=== PATIENT | female | born 1950 ===

== ENCOUNTER 2017-08-15 18:30 | Inpatient (IN) | payer MEDICAID ==
[~2017-08-15] VITALS: Ht 165.1 cm; Wt 69.4 kg
[2017-08-15] MEDS ORDERED: ACETAMINOPHEN 325 MG TAB PO STA (22:41)
[2017-08-15 23:17] VITALS: TEMP 98.6
--- NOTE | 2017-08-15 23:18 | RADRPT ---
PROCEDURE: CHEST - 1 VIEW CLINICAL INDICATION: 67-year-old female with shortness of breath and sepsis. TECHNIQUE: A single frontal AP semi-erect portable view of the chest was performed. The images we re reviewed on a PACS workstation. COMPARISON: None. FINDINGS: The cardiomediastinal silhouette is within normal limits. There is a shallow inspiration. There is m ild bibasilar subsegmental atelectasis. There is no evidence for focal consolidation. There is no e vidence for congestive heart failure. There is no evidence for pneumothorax. The osseous structures are intact. IMPRESSION: Shallow inspiration with mild bibasilar subsegmental atelectasis. .Kenroy Galvan MD, MD Date Time Electronically viewed and signed by .Kenroy Galvan MD, on 08/15/2017 23:18 .M/
[2017-08-15] MEDS ORDERED: CARB15DR50 BOTH EARS (23:35)
[2017-08-15] MEDS ORDERED: HYDR25TA6 PO (23:35)
[2017-08-15] MEDS ORDERED: AMOX1TAB9 PO (23:36)
[2017-08-15] MEDS ORDERED: ATEN50TA PO (23:36)
[2017-08-15] MEDS ORDERED: PIOG30TA2 PO (23:37)
[2017-08-15] MEDS ORDERED: ATOR20TA38 PO (23:37)
[2017-08-15] MEDS ORDERED: CHOL100062 PO (23:37)
[2017-08-15] MEDS ORDERED: ERGO500037 PO (23:38)
[2017-08-15 23:49] LABS: ABNORMAL IP MESSAGE 1; BASOPHIL # 0.1 10^3/ul (0.0-0.1); BASOPHILS % 0.4 % (0.0-2.0); EOSINOPHILS % 0.3 % (0.0-7.0); HEMATOCRIT 39.3 % (37.0-47.0); HEMOGLOBIN 13.5 g/dl (12.0-16.0); LYMPHOCYTES # 1.2 10^3/ul (0.8-2.9); LYMPHOCYTES % 10.4 % (15.0-51.0); MEAN CORPUSCULAR HEMOGLOBIN 31.5 pg (29.0-33.0); MEAN CORPUSCULAR HGB CONC 34.4 g/dl (32.0-37.0); MEAN CORPUSCULAR VOLUME 91.6 fl (82.0-101.0); MEAN PLATELET VOLUME 10.5 fl (7.4-10.4); MONOCYTE # 1.6 10^3/ul (0.3-0.9); MONOCYTES % 13.3 % (0.0-11.0); NEUTROPHIL # 8.9 10^3/ul (1.6-7.5); NEUTROPHILS % 75.2 % (39.0-77.0); PLATELET COUNT 267 10^3/UL (140-415); RED BLOOD COUNT 4.29 10^6/ul (4.20-5.40); RED CELL DISTRIBUTION WIDTH 14.2 % (11.5-14.5); WHITE BLOOD COUNT 11.9 10^3/ul (4.8-10.8)
[2017-08-15 23:50] LABS: POSITIVE DIFF @See below
[2017-08-16] VITALS (13 sets, daily range): BP systolic 109–221; BP diastolic 49–95; PULSE 69–86; RESP 18–21; Ht 165.1 cm; Wt 69.4 kg
[2017-08-16] MEDS ORDERED: SOD CHLORIDE 0.9% 500 ML IV ONE
[2017-08-16 00:10] LABS: ALANINE AMINOTRANSFERASE 49 IU/L (13-69); ALKALINE PHOSPHATASE 77 IU/L (42-121); ANION GAP 17 (8-16); ASPARTATE AMINO TRANSFERASE 32 IU/L (15-46); BILIRUBIN,INDIRECT 0.6 mg/dl (0-1.1); BILIRUBIN,TOTAL 0.6 mg/dl (0.2-1.3); BLOOD UREA NITROGEN 36 mg/dl (7-20); CALCIUM 9.6 mg/dl (8.4-10.2); CARBON DIOXIDE 32 mmol/L (21-31); CHLORIDE 87 mmol/L (97-110); CREATININE 1.71 mg/dl (0.44-1.00); GLUCOSE 152 mg/dl (70-220); POTASSIUM 3.5 mmol/L (3.5-5.1); SODIUM 132 mmol/L (135-144)
[2017-08-16 00:23] LABS: TROPONIN-I < 0.012 ng/ml (0.00-0.12)
[2017-08-16 00:25] LABS: INR 1.09; PROTIME 14.2 Sec (11.9-14.9); PT RATIO 1.1
[2017-08-16 00:26] LABS: PARTIAL THROMBOPLASTIN TIME 30.8 Sec (25.0-35.0)
[2017-08-16 01:32] LABS: ADD UMIC YES; UR ASCORBIC ACID NEGATIVE (NEGATIVE); UR BACTERIA FEW /HPF (NONE SEEN); UR BILIRUBIN (Dip) NEGATIVE (NEGATIVE); UR BLOOD (Dip) 2+ mg/dL (NEGATIVE); UR CLARITY SLIGHTLY CLOUDY (CLEAR); UR COLOR YELLOW (YELLOW); UR GLUCOSE (Dip) NEGATIVE (NEGATIVE); UR KETONES (Dip) NEGATIVE (NEGATIVE); UR LEUKOCYTE ESTERASE (Dip) 3+ Leu/ul (NEGATIVE); UR NITRITE (Dip) POSITIVE (NEGATIVE); UR RBC 7 /HPF (0-5); UR SPECIFIC GRAVITY (Dip) 1.005 (1.003-1.030); UR SQUAMOUS EPITHELIAL CELL FEW /HPF (FEW); UR TOTAL PROTEIN (Dip) NEGATIVE (NEGATIVE); UR UROBILINOGEN (Dip) NEGATIVE (NEGATIVE)
--- NOTE | 2017-08-16 01:40 | RADRPT ---
PROCEDURE: CT BRAIN WITHOUT CONTRAST CLINICAL INDICATION: 67-year-old female with change in mental status and weakness. TECHNIQUE: The study was performed utilizing [employer] VCT 64-slice CT scanner. Direct axial sections were obtained from the foramen magnum to the vertex without the use of intravenous contrast material. Sagittal and coronal reformations were obtained. Sagittal and coronal reformations were obtained. One or more the following dose reduction techniques were utilized: automated exposure cont rol, adjustment of the mA and/or kV according to patient's size and/or use of iterative reconstructi on technique. DICOM images are available. The images were viewed on a PACS workstation. CTD/vol = 45.0 mGy; Total Exam DLP = 720.2 mGy-cm. COMPARISON: None. FINDINGS: There is moderate degree of diffuse cortical and central atrophy with compensatory ventricular enlar gement. There is no evidence for mass effect or midline shift. There are moderate confluent perive ntricular and deep white matter areas of decreased density consistent with microangiopathic ischemic changes. There is a small old lacunar infarct within the left ventral thalamus. There is no evidenc e for acute intra or extra-axial blood. Calcifications are seen within the intracranial carotid malvin beatrice bilaterally. The bony calvarium is intact. There is minimal mucosal thickening within the ethmo id air cells and partially visualized superior left maxillary sinus. No air-fluid levels are noted. The mastoid air cells are without significant soft tissue. IMPRESSION: 1. Moderate diffuse atrophy. 2. Microangiopathic ischemic changes. 3. 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 4. Vascular calcifications. 5. Minimal mucosal thickening ethmoid air cells and partially visualized superior left maxillary si nus. .Kenroy Galvan MD, Date Time Electronically viewed and signed by .Kenroy Galavn MD, on 08/16/2017 01:40 .M/
[2017-08-16] MEDS ORDERED: CEFTRIAXONE 1 GM/50 ML (PMX) 50 ML IVPB ONE (02:00)
--- NOTE | 2017-08-16 02:08 | ERD ---
ER Documentation Chief Complaint Chief Complaint bib family for weakness and shaking HPI [age]-year-old female brought in by family for weakness and shaking. He states it is very weak over the past week. Patient recently had a UTI diagnosed 3 weeks ago and completed a course of antibiotics. She is found to have fever in triage. Patient denies any focal neurologic complaints. Denies any nausea vomiting or abdominal pain. Patient recently traveled here from [facility] 1 month ago. No other medical history is pertinent recent history ROS All systems reviewed and are negative except as per history of present illness. Medications Home Meds Reported Medications Ergocalciferol (Vitamin D2) (VITAMIN D2) 50,000 Unit Capsule, 99481 UNIT PO Q7D , CAP 08/15/17 Cholecalciferol* (Vitamin D3*) 1,000 Unit Tablet, 1000 UNIT PO DAILY, TAB 08/15/17 Atorvastatin Calcium* (Atorvastatin Calcium*) 20 Mg Tablet, 20 MG PO QHS, #30 TAB 08/15/17 Pioglitazone Hcl* (Actos*) 30 Mg Tablet, 30 MG PO DAILY, #30 TAB 08/15/17 Amoxicillin/Potassium Clav (Amox-Clav 500-125 mg Tablet) 500-125 mg Tab, 1 TAB PO BID for 20 Days, TAB 08/15/17 Atenolol* (Atenolol*) 50 Mg Tablet, 50 MG PO DAILY, #30 TAB 08/15/17 Hydrochlorothiazide* (Hydrochlorothiazide*) 25 Mg Tab, 50 MG PO DAILY, #30 TAB 08/15/17 Carbamide Peroxide* (Debrox*) 6.5% - 15 Ml Drops, 5 DROP BOTH EARS BID, BOTTLE 08/15/17 Allergies Allergies: Coded Allergies: No Known Allergy (Unverified , 08/15/17) PMhx/Soc History of Surgery: Yes (gall baldder) Hx Cardiac Disorders: Yes (htn, cholesterol ) Hx Miscellaneous Medical Probl: Yes (dm) Hx Alcohol Use: No Hx Substance Use: No Hx Tobacco Use: No Smoking Status: Never smoker Physical Exam Vitals Vital Signs Date Time Temp Pulse Resp B/P Pulse Ox O2 Delivery O2 Flow Rate FiO2 08/15/17 23:17 98.6 65 16 144/62 100 Room Air 08/15/17 19:42 100.4 82 18 126/81 100 Physical Exam Const: [] Head: Atraumatic Eyes: Normal Conjunctiva ENT: Normal External Ears, Nose and Mouth. Neck: Full range of motion..~ No meningismus. Resp: Clear to auscultation bilaterally Cardio: Regular rate and rhythm, no murmurs Abd: Soft, non tender, non distended. Normal bowel sounds Skin: No petechiae or rashes Back: No midline or flank tenderness Ext: No cyanosis, or edema Neur: Awake and alert Psych: Normal Mood and Affect Result Diagram: 08/15/17 2300 08/15/17 230 Results 24 hrs Laboratory Tests Test 08/15/17 23:00 08/16/17 00:20 08/16/17 00:44 White Blood Count 11.910^3/ul Red Blood Count 4.2910^6/ul Hemoglobin 13.5g/dl Hematocrit 39.3% Mean Corpuscular Volume 91.6fl Mean Corpuscular Hemoglobin 31.5pg Mean Corpuscular Hemoglobin Concent 34.4g/dl Red Cell Distribution Width 14.2% Platelet Count 77963^3/UL Mean Platelet Volume 10.5fl Neutrophils % 75.2% Lymphocytes % 10.4% Monocytes % 13.3% Eosinophils % 0.3% Basophils % 0.4% Nucleated Red Blood Cells % 0.0/100WBC Neutrophils # 8.910^3/ul Lymphocytes # 1.210^3/ul Monocytes # 1.610^3/ul Eosinophils # 0.010^3/ul Basophils # 0.110^3/ul Nucleated Red Blood Cells # 0.010^3/ul Prothrombin Time 14.2Sec Prothrombin Time Ratio 1.1 INR International Normalized Ratio 1.09 Activated Partial Thromboplast Time 30.8Sec Sodium Level 132mmol/L Potassium Level 3.5mmol/L Chloride Level 87mmol/L Carbon Dioxide Level 32mmol/L Anion Gap 17 Blood Urea Nitrogen 36mg/dl Creatinine 1.71mg/dl Glucose Level 152mg/dl Lactic Acid Level 1.9mmol/L 1.2mmol/L Calcium Level 9.6mg/dl Total Bilirubin 0.6mg/dl Direct Bilirubin 0.00mg/dl Indirect Bilirubin 0.6mg/dl Aspartate Amino Transf (AST/SGOT) 32IU/L Alanine Aminotransferase (ALT/SGPT) 49IU/L Alkaline Phosphatase 77IU/L Troponin I < 0.012ng/ml Total Protein 8.0g/dl Albumin 4.0g/dl Globulin 4.00g/dl Albumin/Globulin Ratio 1.00 Urine Color YELLOW Urine Clarity SLIGHTLY CLOUDY Urine pH 6.0 Urine Specific Follett 1.005 Urine Ketones NEGATIVEmg/dL Urine Nitrite POSITIVEmg/dL Urine Bilirubin NEGATIVEmg/dL Urine Urobilinogen NEGATIVEmg/dL Urine Leukocyte Esterase 3+Yanely/ul Urine Microscopic RBC 7/HPF Urine Microscopic WBC 160/HPF Urine Squamous Epithelial Cells FEW/HPF Urine Bacteria FEW/HPF Urine Hyaline Casts FEW/HPF Urine Hemoglobin 2+mg/dL Urine Glucose NEGATIVEmg/dL Urine Total Protein NEGATIVEmg/dl Current Medications Medications (Trade) Dose Ordered Sig/Mikhail Route PRN Reason Start Time Stop Time Status Last Admin Dose Admin Acetaminophen 650 mg 650 mg ONCE STAT PO 08/15/17 22:41 08/15/17 22:43 DC Sodium Chloride 500 ml @ 500 mls/hr Q1H ONCE IV 08/16/17 00:00 08/16/17 00:59 DC 08/16/17 00:58 Ceftriaxone Sodium (Rocephin) 50 ml @ 100 mls/hr ONCE ONCE IVPB 08/16/17 02:00 08/16/17 02:29 Procedures/MDM EKG: Rate/Rhythm: [Normal Sinus Rhythm] QRS, ST, T-waves: [No changes consistent w/ acute ischemia] Impression: [No evidence of ischemia or arrhythmia] Chest X-ray 1V Interpreted by me: Soft Tissue: No acute abnormalities Bones: No acute abnormalities Mediastinum/Cardiac Silhouette/Lungs: [No acute abnormalities] Decision-making: This is a 67-year-old female here for general weakness. Patient has evidence of UTI. Culture sent off. Started on Rocephin. Patient to be admitted to hospitalist to telemetry setting Departure Diagnosis: Primary Impression: Acute weakness Condition: Serious BELEN MAURICIO Aug 16, 2017 02:08
[2017-08-16] MEDS ORDERED: SOD CHLORIDE 0.9% 1,000 ML IV SCH (02:33)
[2017-08-16] MEDS ORDERED: BISACODYL (EC) 5 MG TAB PO PRN (03:00)
[2017-08-16] MEDS ORDERED: AMLODIPINE 5 MG TAB PO SCH (03:00)
[2017-08-16] MEDS ORDERED: ONDANSETRON 4 MG TAB PO PRN (03:00)
[2017-08-16] MEDS ORDERED: NACL 0.9% 3 ML SYG IV SCH (03:00)
[2017-08-16] MEDS ORDERED: ACETAMINOPHEN 325 MG TAB PO PRN (03:00)
[2017-08-16] MEDS ORDERED: DOCUSATE SODIUM 100 MG CAP PO PRN (03:00)
[2017-08-16] MEDS ORDERED: TML25OP5 BOTH EYES (03:46)
[2017-08-16] MEDS ORDERED: LATA2.5D9 BOTH EYES (03:46)
[2017-08-16] MEDS ORDERED: hydrALAzine 20 MG INJ IV ONE (04:00)
[2017-08-16] MEDS ORDERED: ONDANSETRON 4 MG INJ IV PRN (04:30)
[2017-08-16] MEDS ORDERED: hydrALAzine 20 MG INJ IV PRN (07:00)
[2017-08-16 07:32] LABS: ABNORMAL IP MESSAGE 1; BASOPHILS % 0.2 % (0.0-2.0); HEMOGLOBIN 12.9 g/dl (12.0-16.0); LYMPHOCYTES # 0.7 10^3/ul (0.8-2.9); MEAN CORPUSCULAR HEMOGLOBIN 31.4 pg (29.0-33.0); MEAN CORPUSCULAR HGB CONC 34.9 g/dl (32.0-37.0); MEAN PLATELET VOLUME 10.5 fl (7.4-10.4); MONOCYTE # 1.9 10^3/ul (0.3-0.9); MONOCYTES % 14.2 % (0.0-11.0); NEUTROPHIL # 10.9 10^3/ul (1.6-7.5); NEUTROPHILS % 80.3 % (39.0-77.0); PLATELET COUNT 247 10^3/UL (140-415); RED BLOOD COUNT 4.11 10^6/ul (4.20-5.40); RED CELL DISTRIBUTION WIDTH 14.2 % (11.5-14.5); WHITE BLOOD COUNT 13.5 10^3/ul (4.8-10.8)
[2017-08-16 07:34] LABS: POSITIVE DIFF @See below
[2017-08-16] MEDS ORDERED: GLUCOSE GEL 15 GRAM TUBE BUCCAL PRN (08:00)
[2017-08-16] MEDS ORDERED: GLUCAGON 1 MG INJ IM PRN (08:00)
[2017-08-16] MEDS ORDERED: GLUCOSE GEL 15 GRAM TUBE PO PRN ×2 (08:00)
[2017-08-16] MEDS ORDERED: DEXTROSE 50% 50 ML SYRINGE IV PRN ×2 (08:00)
[2017-08-16] MEDS: AMLODIPINE 10 MG TAB PO SCH (08:47)
[2017-08-16] MEDS: INSULIN ASPART [NOVOLOG] 3 ML PEN SC SCH ×4 (08:53→20:41)
--- NOTE | 2017-08-16 08:57 | HP ---
Date/Time of Note Date/Time of Note DATE: 08/16/17 TIME: 08:44 Assessment/Plan VTE Prophylaxis VTE Prophylaxis Intervention: SCD's Lines/Catheters IV Catheter Type (from [facility]): Peripheral IV Assessment/Plan Chief Complaint/Hosp Course This is a 67 year female being admitted to the telemetry floor for: #1 generalized weakness: This likely appears multifactorial secondary to possible underlying mild dehydration and urinary tract infection versus possible development of dementia. At the current time we will brought the patient IV fluid hydration. Will start the patient on ciprofloxacin renally dosed. Will get a PT OT evaluation. CT scan of the head did not show any acute abnormalities there was signs of a possible old lacunar infarct. #2 acute versus chronic kidney disease: We do not have a baseline kidney function. Will check a renal ultrasound. Check urine studies. Hold patient's thiazide diuretic at this time.Consult nephrology. #3 Diabetes mellitus: Patient is currently on Actos which she was started on over the last few months.. Unsure whether this could be contributing to patient 's overall general weakness. Will hold his medication at this time. Will patient on insulin sliding scale. Will check hemoglobin A1c. #4 hypertension: Patient is currently on hydrochlorothiazide, and tenormin. Will hold HCTZ secondary to hyponatremia. Will decrease her dose of Tenormin to 25 mg as she needs a slow taper before discontinuing this. Will initiate the patient on Norvasc. Will patient on as needed hydralazine in the meantime. An additional blood pressure medications as indicated. #5 hyponatremia: Likely secondary to thiazide use as well as dehydration. At the current time will hold thiazide. Will provide patient with IV fluid hydration. This likely appears to be a chronic issue. The patient appears to be in normal mentation. Will consult nephrology. #6 dehydration: Patient appears to be mildly dehydrated this time. She does have dry mucous membranes. Provide fluid hydration with normal saline. Again will consult nephrology for further recommendations. #7 memory loss: The current time we will treat the patient's dehydration and urinary tract infection. Is very possible patient may be developing signs of dementia. Will have to reassess this when her clinical status is improved. This may be done as a outpatient as well. #8 glaucoma: We will continue patient's home timolol and Xalatan #9 DVT GI prophylaxis: SCDs, no GI prophylaxis indicated Further treatment strategy will be implemented as per the clinical course Problems: HPI/ROS Admit Date/Time Admit Date/Time Aug 16, 2017 at 01:48 Hx of Present Illness Chief complaint: Weakness and shaking This is a 67-year-old female brought in by family for weakness and shaking. She states it is very weak over the past week. Patient recently had a UTI diagnosed 3 weeks ago and completed a course of Augmentin. she is found to have fever in triage. Patient denies any focal neurologic complaints. Denies any nausea vomiting or abdominal pain. Patient recently traveled here from [facility] 2 months ago. As per the daughter at the bedside she states that she has noticed her mom being weak. She does report that she still able to eat on her own but she does require help getting dressed and moving around the house but currently those conditions are lower secondary to her being sick. Daughter does report there may be some recent memory issues though her long-term memory is still intact. No recent falls. Allergies: NKDA Medications: See MAR ROS Const: Per HPI Eyes : No pain discharge or redness or change in visual acuity ENT: No pain, sore throat, congestion, congestion, dysphagia or discharge Respiratory: No shortness of breath, cough, sputum, wheezing, or pleuritic pain Cardiovascular: No chest pain, palpitation, PND, or edema GI : no change in appetite, abdominal pain, nausea, vomiting, diarrhea, constipation, or change in the color his stool Genitourinary: No dysuria, hematuria, flank pain , discharge or CVA tenderness Musculoskeletal: No joint pain, back pain, neck pain, restricted range of motion in neck or joints Skin: No rash, bruising or hives Neuro: As per HPI Endocrine: No polyuria, polydipsia, temperature intolerance Psych: No hallucination, depression, anxiety or suicidal ideation PMH/Family/Social Past Medical History Hypertension, diabetes mellitus, hyperlipidemia, glaucoma Past Surgical History Past Surgical Hx: cholecystectomy Family History Significant Family History: no pertinent family hx Social History Alcohol Use: none Smoking Status: Never smoker Drug Use: none Exam/Review of Systems Vital Signs Vitals Vital Signs Date Time Temp Pulse Resp B/P Pulse Ox O2 Delivery O2 Flow Rate FiO2 08/16/17 08:19 77 08/16/17 08:01 99.8 18 124/60 95 08/16/17 03:15 Room Air Intake and Output 08/15/17 08/15/17 08/16/17 15:00 23:00 07:00 Intake Total 640 ml Balance 640 ml Exam Exam General: Patient is a well-developed female, she is somnolent and tired but she is easily arousable and answers questions appropriately HEENT: Atraumatic, normocephalic. The pupils are equal, round and reactive. Extraocular motor are intact Neck: Supple with full range of motion. No rigidity or meningismus Chest: Nontender Lungs: Clear to auscultation bilaterally no crackles rales or wheezing Heart: Normal S1-S2, Regular rhythm and rate. No overt murmurs appreciated Abdomen: Soft , nontender, nondistended , bowel sounds are present. No guarding no rebound tenderness , No masses or organomegaly. No costovertebral temporal angle mass Extremities: Normal to inspection, no edema no cyanosis Neurologic: Somnolent but easily arousable. Appears tired. Cranial nerves II through XII intact. Was not able to assess gait secondary to patient's weakness Additional Comments PROCEDURE: CT BRAIN WITHOUT CONTRAST CLINICAL INDICATION: 67-year-old female with change in mental status and weakness. TECHNIQUE: The study was performed utilizing [employer] VCT 64-slice CT scanner. Direct axial sections were obtained from the foramen magnum to the vertex without the use of intravenous contrast material. Sagittal and coronal reformations were obtained. Sagittal and coronal reformations were obtained. One or more the following dose reduction techniques were utilized: automated exposure control, adjustment of the mA and/or kV according to patient's size and /or use of iterative reconstruction technique. DICOM images are available. The images were viewed on a PACS workstation. CTD/vol = 45.0 mGy; Total Exam DLP = 720.2 mGy-cm. COMPARISON: None. FINDINGS: There is moderate degree of diffuse cortical and central atrophy with compensatory ventricular enlargement. There is no evidence for mass effect or midline shift. There are moderate confluent periventricular and deep white matter areas of decreased density consistent with microangiopathic ischemic changes. There is a small old lacunar infarct within the left ventral thalamus. There is no evidence for acute intra or extra-axial blood. Calcifications are seen within the intracranial carotid arteries bilaterally. The bony calvarium is intact. There is minimal mucosal thickening within the ethmoid air cells and partially visualized superior left maxillary sinus. No air-fluid levels are noted. The mastoid air cells are without significant soft tissue. IMPRESSION: 1. Moderate diffuse atrophy. 2. Microangiopathic ischemic changes. 3. 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 4. Vascular calcifications. 5. Minimal mucosal thickening ethmoid air cells and partially visualized superior left maxillary sinus. .Kenroy Galvan MD, MD Date Time Electronically viewed and signed by .Kenroy Galvan MD, MD on 08/16/2017 01:40 .M/ CC: BELEN MAURICIO PROCEDURE: CHEST - 1 VIEW CLINICAL INDICATION: 67-year-old female with shortness of breath and sepsis. TECHNIQUE: A single frontal AP semi-erect portable view of the chest was performed. The images were reviewed on a PACS workstation. COMPARISON: None. FINDINGS: The cardiomediastinal silhouette is within normal limits. There is a shallow inspiration. There is mild bibasilar subsegmental atelectasis. There is no evidence for focal consolidation. There is no evidence for congestive heart failure. There is no evidence for pneumothorax. The osseous structures are intact. IMPRESSION: Shallow inspiration with mild bibasilar subsegmental atelectasis. .Kenroy Galvan MD, MD Date Time Electronically viewed and signed by .Kenroy Galvan MD, MD on 08/15/2017 23:18 .M/ CC: BELEN MAURICIO EKG: Rate/Rhythm: [Normal Sinus Rhythm] QRS, ST, T-waves: [No changes consistent w/ acute ischemia] Impression: [No evidence of ischemia or arrhythmia] Above as per ED physician documentation Labs Result Diagram: 08/16/17 0653 08/15/17 6350 Medications Medications Current Medications Atorvastatin Calcium 20 mg 20 mg QHS PO ; Start 08/16/17 at 21:00 Sodium Chloride (NS) 1,000 ml @ 80 mls/hr [id number] IV Last administered on 03:58; Admin Dose 80 MLS/HR; Start 08/16/17 at 02:33 Acetaminophen (Tylenol Tab) 650 mg Q6H PRN PO PAIN LEVEL 1-3 OR FEVER; Start 08/16/17 at 03:00 Docusate Sodium (Colace) 100 mg Q12H PRN PO CONSTIPATION; Start 08/16/17 at 03 :00 Bisacodyl (Dulcolax) 5 mg DAILY PRN PO CONSTIPATION; Start 08/16/17 at 03:00 Ondansetron HCl (Zofran Inj) 4 mg Q6H PRN IV NAUSEA AND/OR VOMITING Last administered on 08/16/17 04:41; Admin Dose 4 MG; Start 08/16/17 at 04:30 Hydralazine HCl (Apresoline) 10 mg Q4H PRN IV ELEVATED SYSTOLIC BP; Start at 07:00 Amlodipine Besylate (Norvasc) 10 mg DAILY PO ; Start 08/16/17 at 09:00 Insulin Aspart (Novolog Insulin Pen) NOVOLOG *MILD* ALGORI... Q4 SC ; Start at 09:00 Miscellaneous Information 1 ea NOTE XX ; Start 08/16/17 at 08:00 Glucose (Glutose) 15 gm Q15M PRN PO DECREASED GLUCOSE; Start 08/16/17 at 08:00 Glucose (Glutose) 22.5 gm Q15M PRN PO DECREASED GLUCOSE; Start 08/16/17 at 08: 00 Dextrose (D50w Syringe) 25 ml Q15M PRN IV DECREASED GLUCOSE; Start 08/16/17 at 08:00 Dextrose (D50w Syringe) 50 ml Q15M PRN IV DECREASED GLUCOSE; Start 08/16/17 at 08:00 Glucagon (Glucagen) 1 mg Q15M PRN IM DECREASED GLUCOSE; Start 08/16/17 at 08: 00 Glucose 15 gm 15 gm Q15M PRN BUCCAL DECREASED GLUCOSE; Start 08/16/17 at 08:00 Ciprofloxacin/ Dextrose (Cipro Ivpb) 200 ml @ 200 mls/hr Q24H IVPB ; Start at 10:00 CRUZ WALLACE Aug 16, 2017 08:57
[2017-08-16] MEDS ORDERED: ATENOLOL 50 MG TAB PO SCH (09:00)
[2017-08-16 09:10] LABS: ALBUMIN 3.4 g/dl (3.3-4.9); ALBUMIN/GLOBULIN RATIO 0.94; BILIRUBIN,INDIRECT 0.3 mg/dl (0-1.1); BILIRUBIN,TOTAL 0.3 mg/dl (0.2-1.3); CALCIUM 8.7 mg/dl (8.4-10.2); CREATININE 1.35 mg/dl (0.44-1.00); POTASSIUM 3.1 mmol/L (3.5-5.1)
[2017-08-16] MEDS ORDERED: ATENOLOL 25 MG TAB PO SCH (09:30)
[2017-08-16 09:50] LABS: THYROID STIMULATING HORMONE 1.2 MIU/L (0.465-4.680)
[2017-08-16] MEDS: TIMOLOL 0.25% 5 ML OPH BOTH EYES SCH ×2 (10:00→20:39)
[2017-08-16] MEDS ORDERED: CIPROFLOXACIN 400MG/D5W 200 ML IVPB SCH (10:00)
[2017-08-16] MEDS ORDERED: POTASSIUM CHLORIDE (SR) 20 MEQ TAB PO STA (10:01)
--- NOTE | 2017-08-16 12:14 | CONS ---
DATE OF ADMISSION: 08/16/2017 DATE OF CONSULTATION: TYPE OF CONSULTATION: Nephrology. REASON FOR CONSULTATION: Acute kidney injury, hyponatremia, hypokalemia. REQUESTING PHYSICIAN: Dr. Wallace. HISTORY OF PRESENT ILLNESS: This is a 67-year-old female with a past medical history of diabetes, h istory of hypertension, a probable history of chronic kidney disease who presents to [facility] for complaints of weakness. The patient was recently diagnosed with a UTI 3 weeks ago , was treated with Augmentin. The patient, however, continued to have weakness, chills, was noted t o be shaking. As a result, she was brought in to [facility] Emergency Room for evaluation. Upon arrival, the patient had laboratory data drawn, which showed a sodium 133, BUN 35, creatinine 1.35, patient's white count 11.9. Chest x-ray was obtained which showed shallow inspiration. The patient also had a urinalysis which showed pyuria. In the emergency room, the patient was given IV fluids, antibiotic therapy, potassium chloride, admitted to telemetry for evaluation. In terms of the patient's renal history, the patient states that she was recently told she has prob lems with her kidneys, but does not know how long this has been. The patient was recently brought h ere from [facility] from her daughter approximately 1 month ago. No other acute events observed. The patient, herself, otherwise denies any hemoptysis, hematemesis, hematochezia. PAST MEDICAL HISTORY: As stated above, history of hypertension, history of diabetes. PAST SURGICAL HISTORY: Status post cholecystectomy. ALLERGIES: NO KNOWN DRUG ALLERGIES. FAMILY HISTORY: Noncontributory. SOCIAL HISTORY: Does not drink, smoke or do drugs. MEDICATIONS: The patient's medications have been reviewed. REVIEW OF SYSTEMS: A 14-point review of systems was conducted. Pertinent positives stated in HPI, otherwise negative. PHYSICAL EXAMINATION: VITAL SIGNS: Blood pressure is 124/60, respiration 18, pulse 78, temperature 99.8. HEENT: Head is normocephalic. NECK: Supple. HEART: Regular rate. LUNGS: Show diminished breath sounds at the base. ABDOMEN: Soft, nontender to palpation. No rebound or guarding. EXTREMITIES: Negative for clubbing, cyanosis, no edema. DERMATOLOGIC: No rashes. MUSCULOSKELETAL: No joint effusions. NEUROLOGIC: No focal deficits. LABORATORY DATA: Shows white count 13.5, hemoglobin 12.9, platelet count 247. BNP, patient has a s odium of 133, potassium 3.1, creatinine of 1.35. The patient's imaging studies were reviewed. ASSESSMENT AND PLAN: This is a 67-year-old female who presents with: 1. Nonoliguric acute kidney injury with an unknown baseline creatinine, probable chronic kidney dis ease. Etiology of acute kidney injury is likely secondary to hemodynamics due to hydrochlorothiazid e effect. Possible volume depletion. The patient's initial urinalysis shows pyuria, hematuria and bacteremia consistent with urinary tract infection and hyaline casts, which can be seen in prerenal etiology. Plan at this point is to repeat a urinalysis. We will check urine electrolytes, calculat e a FENa, calculate a fractional excretion of urea. Would recommend to hold hydrochlorothiazide, ag ree with gentle hydration. Will also check a renal ultrasound to evaluate renal parenchyma. Would otherwise continue supportive care, renally dose all medications, avoid nephrotoxins. 2. Hyponatremia, etiology is multifactorial secondary to hydrochlorothiazide effect in conjunction with acute kidney injury causing decreased free water urinary excretion. Plan is to discontinue hyd rochlorothiazide. We will give gentle volume IV fluids and monitor. 3. Hypokalemia secondary to diuretic effect. We will repeat with potassium chloride. 4. Mineral bone disorder. Monitor calcium and phosphorus levels. 5. Urinary tract infection, possible sepsis. Continue current antibiotic regimen. 6. Generalized weakness, possibly due to volume depletion urinary tract infection. Continue curren t antibiotic regimen. Continue IV fluids, monitor. 7. Diabetes. Continue current insulin regimen. 8. Hypertension. Monitor blood pressures closely. Continue current blood pressure regimen. Thank you, Dr. Wallace, for this interesting consult. It will be a pleasure to follow patient with you throughout the hospital course. Dictated By: ADONAY SAENZ DO NR/NTS Conf#: [id number] DID#: [id number] CC: CRUZ WALLACE MD;*EndCC*
[2017-08-16 15:59] LABS: ADD UMIC YES; UR ASCORBIC ACID NEGATIVE (NEGATIVE); UR BACTERIA FEW /HPF (NONE SEEN); UR BILIRUBIN (Dip) NEGATIVE (NEGATIVE); UR BLOOD (Dip) 1+ mg/dL (NEGATIVE); UR CLARITY CLEAR (CLEAR); UR COLOR YELLOW (YELLOW); UR GLUCOSE (Dip) NEGATIVE (NEGATIVE); UR KETONES (Dip) NEGATIVE (NEGATIVE); UR LEUKOCYTE ESTERASE (Dip) 1+ Leu/ul (NEGATIVE); UR NITRITE (Dip) NEGATIVE (NEGATIVE); UR RBC 6 /HPF (0-5); UR SPECIFIC GRAVITY (Dip) 1.011 (1.003-1.030); UR SQUAMOUS EPITHELIAL CELL FEW /HPF (FEW); UR TOTAL PROTEIN (Dip) NEGATIVE (NEGATIVE); UR UROBILINOGEN (Dip) 1+ mg/dL (NEGATIVE)
--- NOTE | 2017-08-16 17:02 | RADRPT ---
PROCEDURE: Renal US. CLINICAL INDICATION: Abnormal renal function TECHNIQUE: Multiple sonographic images of the kidneys were obtained. The images were reviewed on a PACS workstation. COMPARISON: No prior studies are available for comparison. FINDINGS: Both kidneys are normal in echogenicity. There is normal renal cortical thickness without focal thi nning or scarring. No solid renal masses are identified. There is no evidence of renal calculi or obstructive uropathy. The right kidney measures 10.9 cm, and the left kidney measures 10.5 cm. Spot images of the pelvis demonstrating normally distended bladder with smooth contours. IMPRESSION: 1. Unremarkable renal ultrasound. No evidence of renal calculi or obstructive uropathy RPTAT: HH .Mayo Dunn MD, MD Date Time Electronically viewed and signed by .Mayo Dunn MD, MD on 08/16/2017 17:02 .W/
--- NOTE | 2017-08-16 17:10 | PN ---
Date/Time of Note Date/Time of Note DATE: 08/16/17 TIME: 17:07 Assessment/Plan VTE Prophylaxis VTE Prophylaxis Intervention: LMWH Lines/Catheters IV Catheter Type (from Nrs): Peripheral IV Assessment/Plan Chief Complaint/Hosp Course 67 yo female with ho DMII, recent UTI who presents wthi lethargy, malaise and urinary frequency from UTI. Labs notable for GNR bactermia and hyponatremia UTI with GNR bacteremia: - Abx broadened to zosyn until speciation of bug Hyponatremia: - Kia hypovolemic as well as HCTZ effect - Trend Na, now euvolemic LAINA: - Kia prerenal as resolving with fluids DMII: - Basal bolus insulin Discharge when stable Problems: Subjective 24 Hr Interval Summary Free Text/Dictation Blood cultures are growing GNRs in both bottles, abx broadened to zosyn Exam/Review of Systems Vital Signs Vitals Vital Signs Date Time Temp Pulse Resp B/P Pulse Ox O2 Delivery O2 Flow Rate FiO2 08/16/17 16:07 72 08/16/17 11:49 97.8 21 127/61 95 08/16/17 03:15 Room Air Intake and Output 08/15/17 08/15/17 08/16/17 15:00 23:00 07:00 Intake Total 640 ml Balance 640 ml Exam Constitutional: alert, oriented, well developed Psych: nl mood/affect, no complaints Head: atraumatic, normocephalic Eyes: EOMI, PERRL, nl conjunctiva, nl lids, nl sclera ENMT: nl external ears & nose, nl lips & teeth, nl nasal mucosa & septum Neck: non-tender, supple Respiratory: clear to auscultation, normal air movement Cardiovascular: nl pulses, regular rate and rhythm Gastrointestinal: nl liver, spleen, non-tender, soft Musculoskeletal: nl extremities to inspection, nl gait and stance Extremities: normal pulses Neurological: VERTICAL MILL OPERATOR II-XII intact, nl mental status, nl speech, nl strength Skin: nl turgor, No rash or lesions Lymph: nl lymph nodes Results Result Diagram: 08/16/17 0653 08/16/17 0653 Results 24 hrs Laboratory Tests Test 08/15/17 23:00 08/16/17 00:20 08/16/17 00:44 08/16/17 06:51 White Blood Count 11.9 H Red Blood Count 4.29 Hemoglobin 13.5 Hematocrit 39.3 Mean Corpuscular Volume 91.6 Mean Corpuscular Hemoglobin 31.5 Mean Corpuscular Hemoglobin Concent 34.4 Red Cell Distribution Width 14.2 Platelet Count 267 Mean Platelet Volume 10.5 H Neutrophils % 75.2 Lymphocytes % 10.4 L Monocytes % 13.3 H Eosinophils % 0.3 Basophils % 0.4 Nucleated Red Blood Cells % 0.0 Neutrophils # 8.9 H Lymphocytes # 1.2 Monocytes # 1.6 H Eosinophils # 0.0 Basophils # 0.1 Nucleated Red Blood Cells # 0.0 Prothrombin Time 14.2 Prothrombin Time Ratio 1.1 INR International Normalized Ratio 1.09 Activated Partial Thromboplast Time 30.8 Sodium Level 132 L Potassium Level 3.5 Chloride Level 87 L Carbon Dioxide Level 32 H Anion Gap 17 H Blood Urea Nitrogen 36 H Creatinine 1.71 H Glucose Level 152 Lactic Acid Level 1.9 1.2 Calcium Level 9.6 Total Bilirubin 0.6 Direct Bilirubin 0.00 Indirect Bilirubin 0.6 Aspartate Amino Transf (AST/SGOT) 32 Alanine Aminotransferase (ALT/SGPT) 49 Alkaline Phosphatase 77 Troponin I < 0.012 Total Protein 8.0 Albumin 4.0 Globulin 4.00 H Albumin/Globulin Ratio 1.00 Urine Color YELLOW Urine Clarity SLIGHTLY CLOUDY A Urine pH 6.0 Urine Specific [place] 1.005 Urine Ketones NEGATIVE Urine Nitrite POSITIVE A Urine Bilirubin NEGATIVE Urine Urobilinogen NEGATIVE Urine Leukocyte Esterase 3+ H Urine Microscopic RBC 7 H Urine Microscopic WBC 160 H Urine Squamous Epithelial Cells FEW Urine Bacteria FEW A Urine Hyaline Casts FEW A Urine Hemoglobin 2+ H Urine Glucose NEGATIVE Urine Total Protein NEGATIVE Osmolality 283 Test 08/16/17 06:53 08/16/17 07:07 08/16/17 08:47 08/16/17 12:13 White Blood Count 13.5 H Red Blood Count 4.11 L Hemoglobin 12.9 Hematocrit 37.0 Mean Corpuscular Volume 90.0 Mean Corpuscular Hemoglobin 31.4 Mean Corpuscular Hemoglobin Concent 34.9 Red Cell Distribution Width 14.2 Platelet Count 247 Mean Platelet Volume 10.5 H Neutrophils % 80.3 H Lymphocytes % 5.0 L Monocytes % 14.2 H Eosinophils % 0.0 Basophils % 0.2 Nucleated Red Blood Cells % 0.0 Neutrophils # 10.9 H Lymphocytes # 0.7 L Monocytes # 1.9 H Eosinophils # 0.0 Basophils # 0.0 Nucleated Red Blood Cells # 0.0 Sodium Level 133 L Potassium Level 3.1 L Chloride Level 94 L Carbon Dioxide Level 28 Anion Gap 14 Blood Urea Nitrogen 35 H Creatinine 1.35 H Glucose Level 168 Hemoglobin A1c 6.8 H Calcium Level 8.7 Magnesium Level 2.0 Total Bilirubin 0.3 Direct Bilirubin 0.00 Indirect Bilirubin 0.3 Aspartate Amino Transf (AST/SGOT) 34 Alanine Aminotransferase (ALT/SGPT) 43 Alkaline Phosphatase 78 Total Protein 7.0 # Albumin 3.4 Globulin 3.60 H Albumin/Globulin Ratio 0.94 Triglycerides Level 117 Cholesterol Level 132 LDL Cholesterol, Calculated 76 HDL Cholesterol 33 Cholesterol/HDL Ratio 4.0 Thyroid Stimulating Hormone (TSH) 1.200 Lactic Acid Level 1.4 Bedside Glucose 163 118 Test 08/16/17 14:35 08/16/17 14:53 Urine Random Creatinine 70.49 Urine Random Sodium 43 Urine Total Protein 36.0 H NEGATIVE Urine Color YELLOW Urine Clarity CLEAR Urine pH 6.0 Urine Specific [place] 1.011 Urine Ketones NEGATIVE Urine Nitrite NEGATIVE Urine Bilirubin NEGATIVE Urine Urobilinogen 1+ H Urine Leukocyte Esterase 1+ H Urine Microscopic RBC 6 H Urine Microscopic WBC 28 H Urine Squamous Epithelial Cells FEW Urine Bacteria FEW A Urine Hemoglobin 1+ H Urine Glucose NEGATIVE Medications Medications Current Medications Atorvastatin Calcium 20 mg 20 mg QHS PO ; Start 08/16/17 at 21:00 Sodium Chloride (NS) 1,000 ml @ 80 mls/hr [id number] IV Last administered on 03:58; Admin Dose 80 MLS/HR; Start 08/16/17 at 02:33 Acetaminophen (Tylenol Tab) 650 mg Q6H PRN PO PAIN LEVEL 1-3 OR FEVER; Start 08/16/17 at 03:00 Docusate Sodium (Colace) 100 mg Q12H PRN PO CONSTIPATION; Start 08/16/17 at 03 :00 Bisacodyl (Dulcolax) 5 mg DAILY PRN PO CONSTIPATION; Start 08/16/17 at 03:00 Ondansetron HCl (Zofran Inj) 4 mg Q6H PRN IV NAUSEA AND/OR VOMITING Last administered on 08/16/17 04:41; Admin Dose 4 MG; Start 08/16/17 at 04:30 Amlodipine Besylate (Norvasc) 10 mg DAILY PO Last administered on 08/16/17 08 :47; Admin Dose 10 MG; Start 08/16/17 at 09:00 Insulin Aspart (Novolog Insulin Pen) NOVOLOG *MILD* ALGORI... Q4 SC Last administered on 08/16/17 08:53; Admin Dose 1 UNIT; Start 08/16/17 at 09:00 Miscellaneous Information 1 ea NOTE XX ; Start 08/16/17 at 08:00 Glucose (Glutose) 15 gm Q15M PRN PO DECREASED GLUCOSE; Start 08/16/17 at 08:00 Glucose (Glutose) 22.5 gm Q15M PRN PO DECREASED GLUCOSE; Start 08/16/17 at 08: 00 Dextrose (D50w Syringe) 25 ml Q15M PRN IV DECREASED GLUCOSE; Start 08/16/17 at 08:00 Dextrose (D50w Syringe) 50 ml Q15M PRN IV DECREASED GLUCOSE; Start 08/16/17 at 08:00 Glucagon (Glucagen) 1 mg Q15M PRN IM DECREASED GLUCOSE; Start 08/16/17 at 08: 00 Glucose 15 gm 15 gm Q15M PRN BUCCAL DECREASED GLUCOSE; Start 08/16/17 at 08:00 Ciprofloxacin/ Dextrose (Cipro Ivpb) 200 ml @ 200 mls/hr Q24H IVPB Last administered on 08/16/17 08:47; Admin Dose 200 MLS/HR; Start 08/16/17 at 10: 00 Latanoprost (Xalatan) 1 drop QHS BOTH EYES ; Start 08/16/17 at 21:00 Timolol Maleate 1 drop 1 drop BID BOTH EYES ; Start 08/16/17 at 10:00 Piperacillin Sod/ Tazobactam Sod (Zosyn 3.375gm/ 50 ml (Pmx)) 50 ml @ 12.5 mls/ hr TID@ IVPB ; Start 08/16/17 at 18:00 OTONIEL STOCKTON MD Aug 16, 2017 17:10
[2017-08-16] MEDS: PIPER-TAZO 3.375 GM IV (PMX) 50 ML IVPB SCH (17:12)
[2017-08-16] MEDS: ATORVASTATIN 20 MG TAB PO SCH (20:38)
[2017-08-16] MEDS: LATANOPROST 0.005% 2.5 ML OPH BOTH EYES SCH (20:39)
[2017-08-17] VITALS (12 sets, daily range): BP systolic 123–132; BP diastolic 55–64; PULSE 57–69; RESP 17–20
[2017-08-17] MEDS: INSULIN ASPART [NOVOLOG] 3 ML PEN SC SCH ×6 (01:00→20:57)
[2017-08-17] MEDS: PIPER-TAZO 3.375 GM IV (PMX) 50 ML IVPB SCH ×3 (01:34→17:20)
[2017-08-17] MEDS ORDERED: CEFTRIAXONE 1 GM/50 ML (PMX) 50 ML IVPB SCH (02:00)
[2017-08-17 07:53] LABS: ALBUMIN/GLOBULIN RATIO 0.83; BILIRUBIN,INDIRECT 0.3 mg/dl (0-1.1); BILIRUBIN,TOTAL 0.3 mg/dl (0.2-1.3); CALCIUM 8.8 mg/dl (8.4-10.2); CREATININE 1.49 mg/dl (0.44-1.00); POTASSIUM 3.6 mmol/L (3.5-5.1); TOTAL PROTEIN 6.6 g/dl (6.1-8.1)
[2017-08-17 08:01] LABS: BASOPHILS % 0.5 % (0.0-2.0); EOSINOPHILS # 0.2 10^3/ul (0.0-0.5); EOSINOPHILS % 2.9 % (0.0-7.0); HEMATOCRIT 34.7 % (37.0-47.0); HEMOGLOBIN 11.7 g/dl (12.0-16.0); LYMPHOCYTES # 1.1 10^3/ul (0.8-2.9); LYMPHOCYTES % 15.4 % (15.0-51.0); MEAN CORPUSCULAR HEMOGLOBIN 31.3 pg (29.0-33.0); MEAN CORPUSCULAR HGB CONC 33.7 g/dl (32.0-37.0); MEAN CORPUSCULAR VOLUME 92.8 fl (82.0-101.0); MEAN PLATELET VOLUME 10.3 fl (7.4-10.4); MONOCYTE # 1.3 10^3/ul (0.3-0.9); MONOCYTES % 18.1 % (0.0-11.0); NEUTROPHIL # 4.6 10^3/ul (1.6-7.5); NEUTROPHILS % 62.8 % (39.0-77.0); PLATELET COUNT 244 10^3/UL (140-415); RED BLOOD COUNT 3.74 10^6/ul (4.20-5.40); RED CELL DISTRIBUTION WIDTH 14.4 % (11.5-14.5); WHITE BLOOD COUNT 7.3 10^3/ul (4.8-10.8)
[2017-08-17 08:21] LABS: MAGNESIUM 2.3 mg/dl (1.7-2.5); PHOSPHORUS 3.1 mg/dl (2.5-4.9)
[2017-08-17] MEDS: AMLODIPINE 10 MG TAB PO SCH (09:40)
[2017-08-17] MEDS: TIMOLOL 0.25% 5 ML OPH BOTH EYES SCH ×2 (09:40→20:55)
--- NOTE | 2017-08-17 10:41 | PN ---
Date/Time of Note Date/Time of Note DATE: 08/17/17 TIME: 10:40 Assessment/Plan VTE Prophylaxis VTE Prophylaxis Intervention: LMWH Lines/Catheters IV Catheter Type (from Nrs): Peripheral IV Assessment/Plan Chief Complaint/Hosp Course 67 yo female with ho DMII, recent UTI who presents wthi lethargy, malaise and urinary frequency from UTI. Labs notable for GNR bactermia and hyponatremia UTI with GNR bacteremia: - Abx broadened to zosyn until speciation of bug, follow up cultures, repeat BC to ensure clearance Hyponatremia, resolved - Likley hypovolemic as well as HCTZ effect LAINA vs CKD - Likley prerenal as resolving with fluids, creat now 1.4 perhaps CKD. US shows no obstruction DMII: - Basal bolus insulin Hypertension: - Continue amlodipine Discharge when stable Problems: Subjective 24 Hr Interval Summary Free Text/Dictation BC growing GNRs, broadened to zosyn yesterday Afebrile Patient feeling much better Exam/Review of Systems Vital Signs Vitals Vital Signs Date Time Temp Pulse Resp B/P Pulse Ox O2 Delivery O2 Flow Rate FiO2 08/17/17 08:30 97.0 59 18 125/55 95 08/16/17 03:15 Room Air Intake and Output 08/16/17 08/16/17 08/17/17 14:59 22:59 06:59 Intake Total 1828 ml 250 ml Output Total 400 ml 300 ml Balance 1428 ml -50 ml Exam More alert, bright appearing Interactive, pleasant RRR Clear lungs, nonlabored Abd soft nt nd Ext no edema Results Result Diagram: 08/17/17 0625 08/17/17 0625 Results 24 hrs Laboratory Tests Test 08/16/17 12:13 08/16/17 14:35 08/16/17 14:53 08/16/17 17:06 Bedside Glucose 118 146 Urine Osmolality 367 Urine Random Creatinine 70.49 Urine Random Sodium 43 Urine Total Protein 36.0 H NEGATIVE Urine Color YELLOW Urine Clarity CLEAR Urine pH 6.0 Urine Specific [place] 1.011 Urine Ketones NEGATIVE Urine Nitrite NEGATIVE Urine Bilirubin NEGATIVE Urine Urobilinogen 1+ H Urine Leukocyte Esterase 1+ H Urine Microscopic RBC 6 H Urine Microscopic WBC 28 H Urine Squamous Epithelial Cells FEW Urine Bacteria FEW A Urine Hemoglobin 1+ H Urine Glucose NEGATIVE Test 08/16/17 20:37 08/17/17 01:33 08/17/17 05:41 08/17/17 06:25 Bedside Glucose 162 117 137 White Blood Count 7.3 # Red Blood Count 3.74 L Hemoglobin 11.7 L Hematocrit 34.7 L Mean Corpuscular Volume 92.8 Mean Corpuscular Hemoglobin 31.3 Mean Corpuscular Hemoglobin Concent 33.7 Red Cell Distribution Width 14.4 Platelet Count 244 Mean Platelet Volume 10.3 Neutrophils % 62.8 Lymphocytes % 15.4 Monocytes % 18.1 H Eosinophils % 2.9 Basophils % 0.5 Nucleated Red Blood Cells % 0.0 Neutrophils # 4.6 Lymphocytes # 1.1 Monocytes # 1.3 H Eosinophils # 0.2 Basophils # 0.0 Nucleated Red Blood Cells # 0.0 Sodium Level 137 Potassium Level 3.6 Chloride Level 97 Carbon Dioxide Level 32 H Anion Gap 12 Blood Urea Nitrogen 32 H Creatinine 1.49 H Glucose Level 132 Calcium Level 8.8 Phosphorus Level 3.1 Magnesium Level 2.3 Total Bilirubin 0.3 Direct Bilirubin 0.00 Indirect Bilirubin 0.3 Aspartate Amino Transf (AST/SGOT) 23 Alanine Aminotransferase (ALT/SGPT) 37 Alkaline Phosphatase 63 Total Protein 6.6 Albumin 3.0 L Globulin 3.60 H Albumin/Globulin Ratio 0.83 Test 08/17/17 08:18 Bedside Glucose 130 Medications Medications Current Medications Atorvastatin Calcium (Lipitor) 20 mg QHS PO Last administered on 08/16/17 20: 38; Admin Dose 20 MG; Start 08/16/17 at 21:00 Acetaminophen (Tylenol Tab) 650 mg Q6H PRN PO PAIN LEVEL 1-3 OR FEVER; Start 08/16/17 at 03:00 Docusate Sodium (Colace) 100 mg Q12H PRN PO CONSTIPATION; Start 08/16/17 at 03 :00 Bisacodyl (Dulcolax) 5 mg DAILY PRN PO CONSTIPATION; Start 08/16/17 at 03:00 Ondansetron HCl (Zofran Inj) 4 mg Q6H PRN IV NAUSEA AND/OR VOMITING Last administered on 08/16/17 04:41; Admin Dose 4 MG; Start 08/16/17 at 04:30 Amlodipine Besylate (Norvasc) 10 mg DAILY PO Last administered on 08/17/17 09 :40; Admin Dose 10 MG; Start 12/13/17 at 09:00 Insulin Aspart (Novolog Insulin Pen) NOVOLOG *MILD* ALGORI... Q4 SC Last administered on 08/16/17 20:41; Admin Dose 1 UNIT; Start 08/16/17 at 09:00 Miscellaneous Information 1 ea NOTE XX ; Start 08/16/17 at 08:00 Glucose (Glutose) 15 gm Q15M PRN PO DECREASED GLUCOSE; Start 08/16/17 at 08:00 Glucose (Glutose) 22.5 gm Q15M PRN PO DECREASED GLUCOSE; Start 08/16/17 at 08: 00 Dextrose (D50w Syringe) 25 ml Q15M PRN IV DECREASED GLUCOSE; Start 08/16/17 at 08:00 Dextrose (D50w Syringe) 50 ml Q15M PRN IV DECREASED GLUCOSE; Start 08/16/17 at 08:00 Glucagon (Glucagen) 1 mg Q15M PRN IM DECREASED GLUCOSE; Start 08/16/17 at 08: 00 Glucose (Glutose) 15 gm Q15M PRN BUCCAL DECREASED GLUCOSE; Start 08/16/17 at 08:00 Latanoprost (Xalatan) 1 drop QHS BOTH EYES Last administered on 08/16/17 20: 39; Admin Dose 1 DROP; Start 08/16/17 at 21:00 Timolol Maleate 1 drop 1 drop BID BOTH EYES Last administered on 08/17/17 09: 40; Admin Dose 1 DROP; Start 08/16/17 at 10:00 Piperacillin Sod/ Tazobactam Sod (Zosyn 3.375gm/ 50 ml (Pmx)) 50 ml @ 12.5 mls/ hr TID@18 IVPB Last administered on 08/17/17 09:40; Admin Dose 12.5 MLS /HR; Start 08/16/17 at 18:00 OTONIEL STOCKTON MD Aug 17, 2017 10:41
--- NOTE | 2017-08-17 16:55 | PN ---
DATE: 08/17/2017 SUBJECTIVE: The patient is stable. No events overnight. No fevers, chills, nausea, vomiting. OBJECTIVE: VITAL SIGNS: Blood pressure is 125/55, pulse 59, temperature is 97.0. HEENT: Head is normocephalic. NECK: Supple. HEART: Regular rate. LUNGS: Show diminished breath sounds at base. ABDOMEN: Soft, nontender to palpation. No rebound or guarding. EXTREMITIES: Negative for clubbing, cyanosis. No edema, positive BKA. DERMATOLOGIC: No rashes. MUSCULOSKELETAL: No joint effusions. NEUROLOGIC: No change in exam. MEDICATIONS: The patient's medications have been reviewed. LABORATORY DATA: Shows sodium 136, potassium 3.7, chloride 97, bicarbonate 32, BUN 32, creatinine 1 .49. White count 7.3, hemoglobin 11.7, hematocrit 34.7, platelet count 244. The patient's urinalys is shows improving pyuria, protein creatinine ratio 500 mg creatinine, FENa greater than 1%. IMAGING: Renal ultrasound is unremarkable. ASSESSMENT AND PLAN: 1. Nonoliguric acute kidney injury on top of probable chronic kidney disease. The etiology of acut e kidney injury was likely from hemodynamics, hydrochlorothiazide effect. The patient's renal funct ion is fluctuating, but overall stable. The patient's repeat urinalysis was reviewed, no active sed iment. At this point, would continue current treatment plan, supportive care, renally dose all meds . Would continue gentle IV hydration for another 24 hours and then discontinue. 2. Hyponatremia, etiology secondary to hydrochlorothiazide effect in conjunction acute kidney injur y, improved. Continue to monitor. 3. Hypokalemia secondary to diuretic effect, resolved. 4. Mineral bone disorder. Monitor calcium and phosphorus levels. 5. Urinary tract infection, sepsis. Continue current antibiotic regimen. 6. Generalized weakness secondary to urinary tract infection. Continue current medical management. 7. Diabetes. Continue current insulin regimen. 8. Hypertension, improved. Continue to monitor. Dictated By: ADONAY WILKINSON/BROOKE Conf#: [id number] DID#: [id number] CC: CRUZ WALLACE MD;*EndCC*
[2017-08-17] MEDS: ATORVASTATIN 20 MG TAB PO SCH (20:56)
[2017-08-17] MEDS: LATANOPROST 0.005% 2.5 ML OPH BOTH EYES SCH (20:56)
[2017-08-18] VITALS (14 sets, daily range): BP systolic 130–174; BP diastolic 45–76; PULSE 60–69; RESP 16–20
[2017-08-18] MEDS: INSULIN ASPART [NOVOLOG] 3 ML PEN SC SCH ×6 (01:00→21:00)
[2017-08-18] MEDS: PIPER-TAZO 3.375 GM IV (PMX) 50 ML IVPB SCH ×3 (02:35→17:25)
[2017-08-18 07:03] LABS: BASOPHIL # 0.1 10^3/ul (0.0-0.1); BASOPHILS % 0.8 % (0.0-2.0); EOSINOPHILS # 0.6 10^3/ul (0.0-0.5); EOSINOPHILS % 9.4 % (0.0-7.0); HEMATOCRIT 34.5 % (37.0-47.0); HEMOGLOBIN 11.8 g/dl (12.0-16.0); LYMPHOCYTES # 1.4 10^3/ul (0.8-2.9); LYMPHOCYTES % 23.4 % (15.0-51.0); MEAN CORPUSCULAR HEMOGLOBIN 31.3 pg (29.0-33.0); MEAN CORPUSCULAR HGB CONC 34.2 g/dl (32.0-37.0); MEAN CORPUSCULAR VOLUME 91.5 fl (82.0-101.0); MONOCYTES % 17.3 % (0.0-11.0); NEUTROPHIL # 2.9 10^3/ul (1.6-7.5); NEUTROPHILS % 48.8 % (39.0-77.0); PLATELET COUNT 262 10^3/UL (140-415); RED BLOOD COUNT 3.77 10^6/ul (4.20-5.40); WHITE BLOOD COUNT 5.9 10^3/ul (4.8-10.8)
[2017-08-18 07:34] LABS: ALBUMIN/GLOBULIN RATIO 0.9; BILIRUBIN,INDIRECT 0.2 mg/dl (0-1.1); BILIRUBIN,TOTAL 0.2 mg/dl (0.2-1.3); CALCIUM 8.6 mg/dl (8.4-10.2); CREATININE 1.28 mg/dl (0.44-1.00); POTASSIUM 3.1 mmol/L (3.5-5.1); TOTAL PROTEIN 6.3 g/dl (6.1-8.1)
[2017-08-18 07:36] LABS: MAGNESIUM 2.1 mg/dl (1.7-2.5); PHOSPHORUS 3.1 mg/dl (2.5-4.9)
[2017-08-18] MEDS ORDERED: POTASSIUM CHLORIDE (SR) 20 MEQ TAB PO STA (08:43)
[2017-08-18] MEDS: TIMOLOL 0.25% 5 ML OPH BOTH EYES SCH ×2 (09:26→21:10)
--- NOTE | 2017-08-18 11:17 | PN ---
DATE: 08/18/2017 SUBJECTIVE: The patient is stable. No events overnight. No fevers, chills, nausea, vomiting, no s hortness of breath. OBJECTIVE: VITAL SIGNS: Blood pressure 154/69, respirations 16, pulse 65, temperature 97.9. HEENT: Head is normocephalic. NECK: Supple. HEART: Regular rate. LUNGS: Show diminished breath sounds at bases. ABDOMEN: Soft, nontender to palpation without rebound or guarding. EXTREMITIES: Negative for clubbing, cyanosis, no edema. DERMATOLOGIC: No rashes. MUSCULOSKELETAL: No joint effusions. NEUROLOGIC: No change on exam. MEDICATIONS: Have been reviewed. LABORATORY DATA: Showed sodium 138, potassium 3.1, BUN 30, creatinine 1.28. White count 5.9, hemog lobin 11.8, hematocrit 34.5, platelet count is 262, ASSESSMENT AND PLAN: 1. Nonoliguric acute kidney injury on top of probable chronic kidney disease. The etiology of acut e kidney injury secondary to hemodynamics. Renal function has been improving. Continue current odin atment plan, supportive care, renally dose all meds. 2. Hyponatremia. Resolved. 3. Hypokalemia. Replete potassium chloride. 4. Mineral bone disorder. We will monitor calcium and phosphorus levels. 5. Urinary tract infection. Continue antibiotic regimen. 6. Diabetes. Continue current insulin regimen. 7. Hypertension. Continue current blood pressure regimen. Dictated By: ADONAY WILKINSON/BROOKE Conf#: [id number] DID#: [id number]
--- NOTE | 2017-08-18 14:57 | PN ---
Date/Time of Note Date/Time of Note DATE: 08/18/17 TIME: 14:56 Assessment/Plan VTE Prophylaxis VTE Prophylaxis Intervention: LMWH Lines/Catheters IV Catheter Type (from [facility]): [place] Urinary Cath still in place: No Assessment/Plan Chief Complaint/Hosp Course 67 yo female with ho DMII, recent UTI who presents wthi lethargy, malaise and urinary frequency from UTI. Labs notable for GNR bactermia and hyponatremia UTI with sepsis and E Coli bacteremia: - Continue IV zosyn, discharge tomorrow on PO abx to complete course Hyponatremia, resolved - Likley hypovolemic as well as HCTZ effect LAINA vs CKD - Likley prerenal as resolving with fluids, creatinine trending down. Can recheck in coming weeks as outpatient to see where she settles out DMII: - Basal bolus insulin Hypertension: - Continue amlodipine Discharge when stable Problems: Subjective 24 Hr Interval Summary Free Text/Dictation Patient doing much better, feels improved BC growing senstive E Coli Exam/Review of Systems Vital Signs Vitals Vital Signs Date Time Temp Pulse Resp B/P Pulse Ox O2 Delivery O2 Flow Rate FiO2 08/18/17 12:06 62 08/18/17 11:54 98.6 20 151/66 93 08/16/17 03:15 Room Air Intake and Output 08/17/17 08/17/17 08/18/17 15:00 23:00 07:00 Intake Total 650 ml 300 ml Balance 650 ml 300 ml Exam Constitutional: alert, oriented, well developed Psych: nl mood/affect, no complaints Head: atraumatic, normocephalic Eyes: EOMI, PERRL, nl conjunctiva, nl lids, nl sclera ENMT: nl external ears & nose, nl lips & teeth, nl nasal mucosa & septum Neck: non-tender, supple Respiratory: clear to auscultation, normal air movement Cardiovascular: nl pulses, regular rate and rhythm Gastrointestinal: nl liver, spleen, non-tender, soft Musculoskeletal: nl extremities to inspection, nl gait and stance Extremities: normal pulses Neurological: DOUGH SCALER AND MIXER II-XII intact, nl mental status, nl speech, nl strength Skin: nl turgor, No rash or lesions Lymph: nl lymph nodes Results Result Diagram: 08/18/17 0643 08/18/17 0643 Results 24 hrs Laboratory Tests Test 08/17/17 17:18 08/17/17 20:54 08/18/17 02:34 08/18/17 06:43 Bedside Glucose 156 203 137 White Blood Count 5.9 Red Blood Count 3.77 L Hemoglobin 11.8 L Hematocrit 34.5 L Mean Corpuscular Volume 91.5 Mean Corpuscular Hemoglobin 31.3 Mean Corpuscular Hemoglobin Concent 34.2 Red Cell Distribution Width 14.0 Platelet Count 262 Mean Platelet Volume 10.0 Neutrophils % 48.8 Lymphocytes % 23.4 Monocytes % 17.3 H Eosinophils % 9.4 H Basophils % 0.8 Nucleated Red Blood Cells % 0.0 Neutrophils # 2.9 Lymphocytes # 1.4 Monocytes # 1.0 H Eosinophils # 0.6 H Basophils # 0.1 Nucleated Red Blood Cells # 0.0 Sodium Level 138 Potassium Level 3.1 L Chloride Level 99 Carbon Dioxide Level 26 Anion Gap 16 Blood Urea Nitrogen 30 H Creatinine 1.28 H Glucose Level 149 Calcium Level 8.6 Phosphorus Level 3.1 Magnesium Level 2.1 Total Bilirubin 0.2 Direct Bilirubin 0.00 Indirect Bilirubin 0.2 Aspartate Amino Transf (AST/SGOT) 19 Alanine Aminotransferase (ALT/SGPT) 32 Alkaline Phosphatase 68 Total Protein 6.3 Albumin 3.0 L Globulin 3.30 H Albumin/Globulin Ratio 0.90 Test 08/18/17 07:59 08/18/17 12:40 Bedside Glucose 121 157 Medications Medications Current Medications Atorvastatin Calcium (Lipitor) 20 mg QHS PO Last administered on 08/17/17 20: 56; Admin Dose 20 MG; Start 08/16/17 at 21:00 Acetaminophen (Tylenol Tab) 650 mg Q6H PRN PO PAIN LEVEL 1-3 OR FEVER; Start 08/16/17 at 03:00 Docusate Sodium (Colace) 100 mg Q12H PRN PO CONSTIPATION; Start 08/16/17 at 03 :00 Bisacodyl (Dulcolax) 5 mg DAILY PRN PO CONSTIPATION; Start 08/16/17 at 03:00 Ondansetron HCl (Zofran Inj) 4 mg Q6H PRN IV NAUSEA AND/OR VOMITING Last administered on 08/16/17 04:41; Admin Dose 4 MG; Start 08/16/17 at 04:30 Insulin Aspart (Novolog Insulin Pen) NOVOLOG *MILD* ALGORI... Q4 SC Last administered on 08/18/17 12:44; Admin Dose 1 UNIT; Start 08/16/17 at 09:00 Miscellaneous Information 1 ea NOTE XX ; Start 08/16/17 at 08:00 Glucose (Glutose) 15 gm Q15M PRN PO DECREASED GLUCOSE; Start 08/16/17 at 08:00 Glucose (Glutose) 22.5 gm Q15M PRN PO DECREASED GLUCOSE; Start 08/16/17 at 08: 00 Dextrose (D50w Syringe) 25 ml Q15M PRN IV DECREASED GLUCOSE; Start 08/16/17 at 08:00 Dextrose (D50w Syringe) 50 ml Q15M PRN IV DECREASED GLUCOSE; Start 08/16/17 at 08:00 Glucagon (Glucagen) 1 mg Q15M PRN IM DECREASED GLUCOSE; Start 08/16/17 at 08: 00 Glucose (Glutose) 15 gm Q15M PRN BUCCAL DECREASED GLUCOSE; Start 08/16/17 at 08:00 Latanoprost (Xalatan) 1 drop QHS BOTH EYES Last administered on 08/17/17 20: 56; Admin Dose 1 DROP; Start 08/16/17 at 21:00 Timolol Maleate 1 drop 1 drop BID BOTH EYES Last administered on 08/18/17 09: 26; Admin Dose 1 DROP; Start 08/16/17 at 10:00 Piperacillin Sod/ Tazobactam Sod (Zosyn 3.375gm/ 50 ml (Pmx)) 50 ml @ 12.5 mls/ hr TID@02,10,18 IVPB Last administered on 08/18/17 09:26; Admin Dose 12.5 MLS /HR; Start 08/16/17 at 18:00 OTONIEL STOCKTON MD Aug 18, 2017 14:57
[2017-08-18] MEDS ORDERED: hydrALAzine 20 MG INJ IV PRN (20:30)
[2017-08-18] MEDS: LATANOPROST 0.005% 2.5 ML OPH BOTH EYES SCH (21:10)
[2017-08-18] MEDS: ATORVASTATIN 20 MG TAB PO SCH (21:10)
[2017-08-19] VITALS (10 sets, daily range): BP systolic 140–196; BP diastolic 55–84; PULSE 63–72; RESP 17–19
[2017-08-19] MEDS: PIPER-TAZO 3.375 GM IV (PMX) 50 ML IVPB SCH ×2 (01:48→10:00)
[2017-08-19] MEDS ORDERED: ACCUCHECK AT 2AM (Patients on SS coverage) XX SCH (02:00)
[2017-08-19] MEDS: Insulin NOVOLOG SS MILD Algorithm (SS with meals and bedtime) SC SCH ×2 (07:30→11:30)
[2017-08-19] MEDS ORDERED: INSULIN ASPART [NOVOLOG] 3 ML PEN SC SCH (07:30)
[2017-08-19] MEDS: TIMOLOL 0.25% 5 ML OPH BOTH EYES SCH (08:25)
[2017-08-19] MEDS ORDERED: LEVO750T25 PO (10:19)
[2017-08-19] MEDS ORDERED: AMLO5TAB4 PO (10:19)
--- NOTE | 2017-08-19 10:21 | PDOCDIS ---
Discharge Instructions DIAGNOSIS Discharge Diagnosis Urinary tract infection CONDITION Patient Condition: Good HOME CARE INSTRUCTIONS: Special Diet: MECH SOFT, CARB CONTROLLED FOLLOW UP/APPOINTMENTS Follow-up Plan You have been prescribed an antibiotic called Levofloxacin to take for 7 more days We have stopped your hydrocholorthiazide and atenolol and precribed a different blood pressure medication called Amlodipine to take. It is very important to follow up with your primary doctor for management of your high blood pressure and diabetes which are lifelong conditions Return to the hospital if you have any concerning symptoms OTONIEL STOCKTON MD Aug 19, 2017 10:21
--- NOTE | 2017-08-19 10:24 | DS ---
Date/Time of Note Date/Time of Note DATE: 08/19/17 TIME: 10:22 Discharge Summary Admission/Discharge Info Admit Date/Time Aug 16, 2017 at 01:48 Discharge Date/Time Discharge Diagnosis Urinary tract infection Patient Condition: Good Hospital Course 67 yo female with ho DMII, recent UTI who presents wthi lethargy, malaise and urinary frequency from UTI. Labs notable for GNR bactermia and hyponatremia UTI with sepsis and E Coli bacteremia: - Continue IV zosyn, discharge tomorrow on PO abx to complete course Hyponatremia, resolved - Likley hypovolemic as well as HCTZ effect LAINA vs CKD - Likley prerenal as resolving with fluids, creatinine trending down. Can recheck in coming weeks as outpatient to see where she settles out DMII: - Basal bolus insulin Hypertension: - Continue amlodipine The patient was found to have sepsis and treated with zosyn for urinary tract infection. She promptly improved on this therapy. Her blood cultures grew E Coli and she was prescribed one week of levofloxacin to take after discharge. Her labs were notable for hyponatremia and LAINA. Sodium likely 2/2 prerenal as well as thiazide effect. Both improved with fluids. She was prescribed amlodipine to take at discharge rather than her thiazide. Her atenolol was discontinued. She was encouraged to follow up with her primary doctor for management of hypertension and diabetes. Home Meds Active Scripts Levofloxacin* (Levaquin*) 750 Mg Tablet, 750 MG PO DAILY for 7 Days, #7 TAB Prov:OTONIEL STOCKTON MD 08/19/17 Amlodipine Besylate* (Norvasc*) 5 Mg Tablet, 5 MG PO DAILY for 60 Days, #60 TAB 5 Refills Prov:OTONIEL STOCKTON MD 08/19/17 Reported Medications Latanoprost (Xalatan) 2.5 Ml Drops, 1 DROP BOTH EYES QHS, #1 BOTTLE 08/16/17 Timolol Maleate* (Timoptic*) 0.25%-5ml Opht, 1 DROP BOTH EYES BID, #1 EA 08/16/17 Ergocalciferol (Vitamin D2) (VITAMIN D2) 50,000 Unit Capsule, 70236 UNIT PO Q7D , CAP 08/15/17 Cholecalciferol* (Vitamin D3*) 1,000 Unit Tablet, 1000 UNIT PO DAILY, TAB 08/15/17 Atorvastatin Calcium* (Atorvastatin Calcium*) 20 Mg Tablet, 20 MG PO QHS, #30 TAB 08/15/17 Pioglitazone Hcl* (Actos*) 30 Mg Tablet, 30 MG PO DAILY, #30 TAB 08/15/17 Carbamide Peroxide* (Debrox*) 6.5% - 15 Ml Drops, 5 DROP BOTH EARS BID, BOTTLE 08/15/17 Discontinued Reported Medications Amoxicillin/Potassium Clav (Amox-Clav 500-125 mg Tablet) 500-125 mg Tab, 1 TAB PO BID for 20 Days, TAB 08/15/17 Atenolol* (Atenolol*) 50 Mg Tablet, 50 MG PO DAILY, #30 TAB 08/15/17 Hydrochlorothiazide* (Hydrochlorothiazide*) 25 Mg Tab, 50 MG PO DAILY, #30 TAB 08/15/17 Follow-up Plan You have been prescribed an antibiotic called Levofloxacin to take for 7 more days We have stopped your hydrocholorthiazide and atenolol and precribed a different blood pressure medication called Amlodipine to take. It is very important to follow up with your primary doctor for management of your high blood pressure and diabetes which are lifelong conditions Return to the hospital if you have any concerning symptoms Primary Care Provider Care Physician No Primary Pending Labs Laboratory Tests Test 08/18/17 12:40 08/18/17 17:24 08/18/17 21:09 08/19/17 08:23 Bedside Glucose 157mg/dL (70-220) 133mg/dL (70-220) 115mg/dL (70-220) 120mg/dL (70-220) OTONIEL STOCKTON MD Aug 19, 2017 10:24
--- NOTE | 2017-08-19 14:48 | PN ---
DATE: 08/19/2017 SUBJECTIVE: The patient is stable. No events overnight. OBJECTIVE: VITAL SIGNS: Blood pressure is 168/72, pulse 67, respiration 19, temperature 97.5. HEENT: Head is normocephalic. NECK: Supple. HEART: Regular rate. LUNGS: Show diminished breath sounds at base. ABDOMEN: Soft, nontender to palpation. No rebound or guarding. EXTREMITIES: Negative for clubbing, cyanosis, no edema. DERMATOLOGIC: No rashes. MUSCULOSKELETAL: No joint effusions. NEUROLOGIC: No change in exam. LABORATORY DATA: Shows white count 5.9, hemoglobin 11.8, platelet count 262. BMP from 08/18/2017 w as reviewed. ASSESSMENT AND PLAN: 1. Nonoliguric acute kidney injury on top of probable chronic kidney disease. Etiology of acute kid anastasiya injury is secondary to hemodynamics. Renal function has been improving. Continue current treat ment plan, supportive care, renally dose all meds. 2. Mineral bone disease. Continue to monitor calcium and phosphorus levels. 3. Urinary tract infection. Continue current antibiotic regimen. 4. Diabetes. Continue current insulin regimen. 5. Hypertension. Continue current blood pressure regimen. 6. Probable chronic kidney disease. Recommendation is to treat acute kidney injury as stated above, otherwise continue disease factor modifications with good glycemic and blood pressure control. 7. Hypokalemia. Will monitor and replete potassium chloride as needed. Dictated By: ADONAY WILKINSON/BROOKE Conf#: [id number] DID#: [id number]
== END 2017-08-19 14:40 | disposition home or self-care (01) | DRG 871 ==
LOC: E/R 18:30 → MS4 08-16 01:48
PROVIDERS: ADMIT Family Medicine; ATTEND Family Medicine
DX: A41.51 Sepsis due to Escherichia coli [E. coli] (principal); G93.41 Metabolic encephalopathy; N17.9 Acute kidney failure, unspecified; N39.0 Urinary tract infection, site not specified; E87.1 Hypo-osmolality and hyponatremia; I12.9 Hypertensive chronic kidney disease with stage 1 through stage 4 chronic kidney disease, or unspecified chronic kidney disease; N18.9 Chronic kidney disease, unspecified; E86.0 Dehydration; H40.9 Unspecified glaucoma; E87.6 Hypokalemia; E83.9 Disorder of mineral metabolism, unspecified; E11.22 Type 2 diabetes mellitus with diabetic chronic kidney disease
CPT/HCPCS: 36415; 70450; 71010; 76775; 80053; 80061; 81001; 81003; 82043; 82962; 83036; 83605; 83735; 83930; 83935; 84100; 84155; 84300; 84443; 84484; 85025; 85610; 85730; 87040; 87086; 92610; 93005; 96361; 96365; 97110; 97116; 97162; 97530; J0360; J0696; J0744; J1815; J2405; J2543; J7030; J7040